=== PATIENT | female | born 1950 | race African-American/Black ===

== ENCOUNTER 2016-06-16 03:14 | Emergency (ER) | payer MEDICAID ==
[~2016-06-16] VITALS: Ht 172.7 cm; Wt 109.1 kg
[2016-06-16] MEDS ORDERED: DiphenhydrAMINE HCL 50 MG/ML VIAL IVP ONE (03:30)
[2016-06-16] MEDS ORDERED: MethylPREDNISolone SOD SUCC 125 MG/2 ML VIAL IVP ONE (03:30)
[2016-06-16] MEDS ORDERED: LISI10TA7 PO (03:39)
[2016-06-16] MEDS ORDERED: CLOP75TA32 PO (03:39)
[2016-06-16] MEDS ORDERED: SIMV20TA6 PO (03:39)
[2016-06-16] MEDS ORDERED: AMLO5TAB66 PO (03:39)
[2016-06-16 05:30] VITALS: BP 141/82
== END 2016-06-16 05:39 | disposition home or self-care (01) ==
LOC: EMS 03:16
DX: T78.3XXA Angioneurotic edema, initial encounter (principal); I10 Essential (primary) hypertension
CPT/HCPCS: 96374; 96375; 99284; J1200; J2930

== ENCOUNTER → 2016-07-28 | Outpatient (CLI) | payer MEDICAID ==
[~2016-07-28] MED LIST: AMLO5TAB66 PO; CLOP75TA32 PO; LISI10TA7 PO; SIMV20TA6 PO
== END | disposition home or self-care (01) ==
LOC: RADPV 08:10
PROVIDERS: ATTEND Internal Medicine Cardiovascular Disease
DX: I50.1 Left ventricular failure, unspecified (principal); I08.3 Combined rheumatic disorders of mitral, aortic and tricuspid valves
CPT/HCPCS: 93306